=== PATIENT | female | born 1995 | race Caucasian/White ===

== ENCOUNTER 2017-09-13 13:58 | Emergency (ER) | payer OTHER, SELFPAY | END 2017-09-13 15:12 | disposition home or self-care (01) | PROVIDERS: Emergency Provider Nurse Practitioner; Visit Provider Nurse Practitioner | DX: J09.X2 Influenza due to identified novel influenza A virus with other respiratory manifestations (principal) | CPT/HCPCS: 87804; 99201 ==

== ENCOUNTER 2020-04-24 13:17 | Emergency (ER) | payer BC, SELFPAY ==
--- NOTE | 2020-04-24 14:00 | HMH.EDUTC ---
[facility] [place] Impression: Dysuria, Viral syndrome Disposition: Home, Self-Care Condition on Discharge: Good Instructions: DI for Urinary Tract Infection (UTI) Additional Instructions: Drink plenty of fluids. Take tylenol for pain or fever. Follow up with your regular doctor. GO TO THE ER FOR ANY WORSENING SYMPTOMS FOLLOW THE DIRECTIONS ON THE COVID-19 HAND OUT THAT WE GAVE YOU REGARDING SELF-ISOLATION UNTIL YOU KNOW YOUR COVID-19 RESULTS Prescriptions: Sulfamethoxazole/Trimethoprim [Bactrim DS tablet] 1 each PO BID 7 Days #14 tab Transmission Status: Received by [facility] #[id number] Referrals: Isabel Patel APRN [Primary Care Provider] - Forms: Work/School Release Time of Disposition: 14:30 Medical Decision Making - Medical Records Medical records reviewed: No: I reviewed the patient's medical records. - Lm Inquiry Pt receiving controlled substance: No Vital Signs: 04/24/20 14:03 04/24/20 14:35 Temperature 100.1 F H 100.1 F H Temperature Source Oral Oral Pulse Rate 99 H Pulse Rate [Radial] 99 H Respiratory Rate 14 14 Blood Pressure 130/84 Blood Pressure [Right Arm] 130/84 Blood Pressure Mean [Right Arm] 99 Blood Pressure Source Automatic Cuff Blood Pressure Source [Right Arm] Automatic Cuff Blood Pressure Position Sitting Blood Pressure Position [Right Arm] Sitting 02 Sat by Pulse Oximetry 100 Oxygen Delivery Method Room Air Room Air - Lab Data Lab results reviewed: Yes: I reviewed the patient's lab results. Lab Results 04/24/20 14:05: Urine Color [place], Urine Appearance Clear, Urine pH 7.0, Ur Specific [place] 1.025, Urine Protein 2+, Urine Glucose (UA) 100, Urine Ketones Negative, Urine Blood Negative, Urine Nitrate Negative, Urine Bilirubin 2+ A, Urine Urobilinogen 2, Ur Leukocyte Esterase Negative [facility] [place] - General Stated complaint: possible kidney infection Time Seen by Provider: 04/24/20 14:00 - History of Present Illness Provider Complaint: She c/o chilling, fever, low back pain for the past2 days. She has also had some burning with urination and dark strong smelling urine. She denies any known exposure to COVID-19. - Related Data Home Medications Medication Instructions Recorded Confirmed norethindrone 1 mg-ethinyl 1 tab PO 28 Days tab 08/03/18 estradiol 20 mcg (21)-iron 75 mg (7) tablet Previous Rx's Medication Instructions Recorded promethazine 25 mg tablet 25 mg PO Q6H PRN #7 tab 05/18/18 Sulfamethoxazole/Trimethoprim 1 each PO BID 7 Days #14 tab 04/24/20 [Bactrim DS tablet] Allergies Allergy/AdvReac Type Severity Reaction Status Date / Time No Known Allergies Allergy Unverified 05/20/18 17:44 [facility] History - Hepatitis A Screen Attestation statement:: This patient has been screened for Hepatitis A risk factors. I have reviewed the patient's past medical history: Yes Medical History: Denies:: Asthma, Coronary Artery Disease Laterality Cases: Bilateral: Tonsillectomy - Social History Smoking Status: Never smoker Alcohol Intake: never Substance Use Type: denies use Occupational Status: employed Family Hx:: Diabetes ROS Obtained: Yes All systems reviewed & no additional complaints - Constitutional Constitutional: Denies chills, Denies fever(s) - Genitourinary Female Genitourinary: Reports as per HPI - Musculoskeletal Musculoskeletal: Reports back pain Physical Exam - General General appearance: alert, in no apparent distress - Head Head exam: atraumatic, normocephalic, normal inspection - Eye Eye exam: Present: normal appearance, PERRL, EOMI - ENT ENT exam: Present: normal exam, normal oropharynx, mucous membranes moist, TM's normal bilaterally, normal external ear exam - Neck Neck exam: Present: normal inspection, full ROM, trachea midline. Absent: meningismus, lymphadenopathy - Chest Chest inspection: Present: normal inspection, symmetric chest wall ris
[2020-04-24 14:03] VITALS: BP 130/84; PULSE 99; RESP 14; TEMP 37.8; O2SAT 100; BMI 24.4
[2020-04-24 14:10] LABS: Apearance,Urine Clear (Clear); Color,Urine Amber (Yellow); Specific Gravity, Urine 1.025 (1.005-1.030)
[2020-04-24 14:11] LABS: Bilirubin,Urine 2+ (Negative); Blood, Urine Negative (Negative); Glucose,Urine (UA) 100 (Negative); Ketones,Urine Negative (Negative); Protein,Urine 2+ (Negative); Urobilinogen,Urine 2 EU/dl (0.2)
[2020-04-24 14:12] LABS: UTC Leukocyte Esterase,Urine Negative (Negative); UTC Nitrate,Urine Negative (Negative)
[2020-04-24 14:35] VITALS: BP 130/84; PULSE 99; RESP 14; TEMP 37.8; O2SAT 100
== END 2020-04-24 14:37 | disposition home or self-care (01) ==
PROVIDERS: Emergency Provider Nurse Practitioner Family; PCP Nurse Practitioner Family
DX: B34.9 Viral infection, unspecified (principal); Z20.828 Contact with and (suspected) exposure to other viral communicable diseases; Z90.09 Acquired absence of other part of head and neck
CPT/HCPCS: 81003; 99202; U0003

== ENCOUNTER 2022-06-07 18:00 | Emergency (ER) | payer OTHER, SELFPAY ==
[2022-06-07 19:40] VITALS: BP 120/72; PULSE 71; RESP 18; TEMP 36.8; O2SAT 100; BMI 22.0
[2022-06-07 19:53] LABS: UTC Pregnancy Test, Urine Negative (Negative)
[2022-06-07 19:54] LABS: Apearance,Urine Clear (Clear); Bilirubin,Urine Negative (Negative); Blood, Urine Negative (Negative); Color,Urine Yellow (Yellow); Glucose,Urine (UA) Negative (Negative); Ketones,Urine Negative (Negative); Protein,Urine Negative (Negative); Specific Gravity, Urine 1.025 (1.005-1.030); UTC Leukocyte Esterase,Urine Negative (Negative); UTC Nitrate,Urine Negative (Negative); Urobilinogen,Urine 1 EU/dl (0.2)
--- NOTE | 2022-06-07 19:57 | EXP.UTC ---
Discharge Plan Disposition Patient Disposition: Home, Self-Care Condition: Good Prescriptions Prescriptions: New cephalexin 500 mg capsule 500 mg PO BID 5 Days Qty: 10 0RF No Action norethindrone-e.estradiol-iron 1 mg-20 mcg (21)/75 mg (7) tablet 1 tab PO 28 Days Referrals Follow up/Referrals: Kristy Cabezas [Primary Care Provider] - See instructions Activity Restrictions/Add. Instructions Additional Instructions/Restrictions: *Increase fluids. Water not Soda or Tea *Start antibiotic immediately and be sure to take as ordered for the FULL length of time although you should start to see improvement over the next 48 hours *Be SURE to follow up anytime for new or worsening symptoms with your family doctor. AND in 48 hours for urine culture results with your family doctor, if you do not have a doctor then you may call back to the [facility] for urine culture results and further treatment. We do recommend that you choose and establish care with a Primary Care Physician. ?AND follow up with them ?in 10-14 days to repeat UA to ensure infection is resolved and blood no longer present *Be sure to let your PCP know that we sent urine cultures from the [facility] so they can follow up to ensure that you area the on the correct antibiotic Call your doctor office and make appointment for 48 hours (2 days from today) ?to follow up and get the results of your urine culture and further treatment Clinical Impressions Clinical Impression: Dysuria Instructions Patient Instructions: DI for Urinary Tract Infection (UTI) [place]charge ED [place]az[place] [facility] [place] General Stated complaint: adominal pain Mode of Arrival: Ambulatory Source of Information: Patient Limitations: No Limitations Time Seen by Provider: 06/07/22 19:57 Description of Symptoms (Recalled from Triage Doc. by RN): PATIENT C/O FREQUENT URINATION X 4 DAYS HEENT Symptoms (Recalled from RN notes): No Resp Symptoms (Recalled from RN notes): No Skin Symptoms (Recalled from RN notes): No MS Symptoms (Recalled from RN notes): No Functional Status (Recalled from RN notes): WNL History of Present Illness Provider Complaint: Patient states that she has been having urinary frequency and urgency at home and has taken several home UTI test and they showed positive States that she started drinking cranberry juice and it did help some but still having the pressure like feeling like she has to go Denies back pain denies fever Patient states feels like she has a UTI Related Data Home Medications Medication Instructions Recorded Confirmed norethindrone 1 mg-ethinyl 1 tab PO 28 days 04/18/18 estradiol 20 mcg (21)-iron 75 mg (7) tablet Previous Rx's Medication Instructions Recorded cephalexin 500 mg capsule 500 mg PO BID 5 days #10 caps 06/07/22 Allergies Allergy/AdvReac Type Severity Reaction Status Date / Time Sulfa (Sulfonamide Allergy Verified 06/07/22 19:53 Antibiotics) Worker's Comp Is this a Worker's Comp case?: No PFSH PFSH Medical History (Updated 06/07/22 @ 20:07 by Elli Bazan APRN) Anxiety Depression Social History (Updated 06/07/22 @ 19:52 by Yoly Vargas RN) Smoking Status: Never smoker alcohol intake: never substance use type: denies use current occupational status: other Travel in the last 8 weeks: None housing: house ROS Obtained: Yes All systems reviewed & no additional complaints except as documented and Yes Systems reviewed as appropriate & no additional complaints except as documented Constitutional Constitutional: Reports system reviewed and no additional complaints, except as documented, Reports as per HPI, Denies body ache, Denies chills and Denies fever(s) ENT Ears, Nose, Mouth, and Throat: Reports system reviewed and no additional complaints, except as documented and Reports as per HPI Cardiovascular Cardiovascular: Reports system reviewed and no additional complaints, except as documented
[2022-06-07 20:08] VITALS: BP 120/72; PULSE 71; RESP 18; TEMP 36.8; O2SAT 100
[2022-06-11 21:08] LABS: Neisseria gonorrhoeae, NAA Negative (Negative)
== END 2022-06-07 20:14 | disposition home or self-care (01) ==
PROVIDERS: Emergency Provider Nurse Practitioner; PCP Nurse Practitioner Family
DX: R30.0 Dysuria (principal)
CPT/HCPCS: 81003; 81025; 87086; 87491; 87591; 99212; G0463

== ENCOUNTER 2022-10-12 13:25 | Emergency (ER) | payer OTHER, SELFPAY ==
[2022-10-12 13:27] VITALS: BP 135/82; PULSE 73; RESP 20; TEMP 36.8; O2SAT 98; BMI 24.7
--- NOTE | 2022-10-12 13:56 | EXP.UTC ---
Discharge Plan Disposition Patient Disposition: Home, Self-Care Condition: Good Prescriptions Prescriptions: No Action norethindrone-e.estradiol-iron 1 mg-20 mcg (21)/75 mg (7) tablet 1 tab PO DAILY 28 Days fluoxetine 40 mg capsule 40 mg PO DAILY Label Comments: TAKE UP TO 1 CAPSULE BY MOUTH DAILY DIRECTED Referrals Follow up/Referrals: Kristy Cabezas [Primary Care Provider] - See instructions Activity Restrictions/Add. Instructions Additional Instructions/Restrictions: Will call with serum results Clinical Impressions Clinical Impression: Amenorrhea Instructions Patient Instructions: DI for Amenorrhea [place]charge ED Provider: Mirela Rubio [facility] [place] General Stated complaint: test Time Seen by Provider: 10/12/22 13:56 History of Present Illness Provider Complaint: Patient has not had a period in September. Her period in August only lasted 2 days. She has taken two home tests and they were negative, but she wants to be sure that she is not before she starts her new pill pack. She states that she has been on control for 7 years. Relieving factors: none Exacerbating factors: none Associated symptoms: denies other symptoms Treatments prior to arrival: none Related Data Home Medications Medication Instructions Recorded Confirmed norethindrone 1 mg-ethinyl 1 tab PO DAILY control 28 04/18/18 10/12/22 estradiol 20 mcg (21)-iron 75 mg days (7) tablet fluoxetine 40 mg capsule 40 mg PO DAILY Depression 10/12/22 10/12/22 Allergies Allergy/AdvReac Type Severity Reaction Status Date / Time Sulfa (Sulfonamide Allergy Verified 10/12/22 14:07 Antibiotics) [facility] Disclaimer: The information contained in this section may have been updated after the patient was seen, as this information can be updated by other users. Medical History (Updated 10/12/22 @ 14:12 by DARIANA Medeiros) Anxiety Depression Social History (Updated 06/07/22 @ 19:52 by Yoly Vargas RN) Smoking Status: Never smoker alcohol intake: never substance use type: denies use current occupational status: other Travel in the last 8 weeks: None housing: house ROS Obtained: Yes All systems reviewed & no additional complaints except as documented Genitourinary Female Genitourinary: Reports amenorrhea Physical Exam General General appearance: alert and in no apparent distress Head Head exam: atraumatic, normocephalic and normal inspection Chest Chest inspection: Present normal inspection and symmetric chest wall rise; Absent tenderness Respiratory Respiratory exam: Present normal lung sounds bilaterally; Absent respiratory distress Cardiovascular Cardiovascular exam: Present regular rate and normal rhythm; Absent JVD Extremities Exam Extremities exam: Present normal inspection, full ROM and normal capillary refill; Absent calf tenderness Neurological Exam Neurological exam: Present alert and oriented X3 Psychiatric Psychiatric exam: Present normal affect and normal mood Skin Skin exam: Present warm, dry, intact and normal color Lymphatic Lymphatic Findings: no adenopathy Medical Decision Making Lm Inquiry Pt receiving controlled substance: No Lab Data Lab results reviewed: Yes I reviewed the patient's lab results.
[2022-10-12 13:59] VITALS: BMI 24.7
[2022-10-12 14:09] VITALS: BP 135/82; PULSE 73; RESP 20; TEMP 36.8; O2SAT 98
[2022-10-12 14:46] LABS: HCG Qualitative, Serum Negative (Negative)
== END 2022-10-12 14:09 | disposition home or self-care (01) ==
PROVIDERS: Emergency Provider Physician Assistant; PCP Nurse Practitioner Family
DX: Z32.02 Encounter for pregnancy test, result negative (principal); N91.2 Amenorrhea, unspecified; Z79.3 Long term (current) use of hormonal contraceptives
CPT/HCPCS: 84703; 99212; G0463

== ENCOUNTER 2022-11-05 11:09 | Emergency (ER) | payer OTHER, SELFPAY ==
[2022-11-05 11:15] VITALS: BP 121/78; PULSE 81; RESP 22; TEMP 36.8; O2SAT 98; BMI 22.4
--- NOTE | 2022-11-05 11:30 | EXP.UTC ---
Discharge Plan Disposition Patient Disposition: Home, Self-Care Condition: Good Prescriptions Prescriptions: New ofloxacin 0.3 % drops See Rx Instructions .ROUTE .COMPLEX Qty: 5 0RF Rx Instructions: put 1 drp into affected eye every 2 h x 2 days, then 1 drp 4 times/day days 3-7 No Action norethindrone-e.estradiol-iron 1 mg-20 mcg (21)/75 mg (7) tablet 1 tab PO DAILY 28 Days fluoxetine 40 mg capsule 40 mg PO DAILY Label Comments: TAKE UP TO 1 CAPSULE BY MOUTH DAILY DIRECTED Referrals Follow up/Referrals: Kristy Cabezas [Primary Care Provider] - See instructions Activity Restrictions/Add. Instructions Additional Instructions/Restrictions: Use the eye drops as directed. Strict hand washing in the house hold, because conjunctivitis is very contagious. Follow up with your regular doctor. GO TO THE ER FOR ANY WORSENING SYMPTOMS OR CONCERNS Clinical Impressions Clinical Impression: Conjunctivitis of left eye Stand Alone Forms Stand Alone Forms: Work/School Release Instructions Patient Instructions: How to Instill Eye Drops, DI for Conjunctivitis Discharge ED Provider: Lavon Mustafa [facility] [place] General Stated complaint: possible pink eye Time Seen by Provider: 11/05/22 11:29 History of Present Illness Provider Complaint: She states that for the past 2 days she has had left eye irritation and redness. She denies any injury or foreign body. Related Data Home Medications Medication Instructions Recorded Confirmed norethindrone 1 mg-ethinyl 1 tab PO DAILY control 28 04/18/18 10/12/22 estradiol 20 mcg (21)-iron 75 mg days (7) tablet fluoxetine 40 mg capsule 40 mg PO DAILY Depression 10/12/22 10/12/22 Previous Rx's Medication Instructions Recorded ofloxacin 0.3 % eye drops See Rx Instructions ophthalmic 11/05/22 (eye) .COMPLEX #5 mL Allergies Allergy/AdvReac Type Severity Reaction Status Date / Time Sulfa (Sulfonamide Allergy Verified 10/12/22 14:07 Antibiotics) [facility] Disclaimer: The information contained in this section may have been updated after the patient was seen, as this information can be updated by other users. Medical History Anxiety Depression Social History Smoking Status: Never smoker alcohol intake: never substance use type: denies use current occupational status: other Travel in the last 8 weeks: None housing: house ROS Obtained: Yes All systems reviewed & no additional complaints except as documented Constitutional Constitutional: Denies chills and Denies fever(s) Eyes Eyes: Reports eye discharge ENT Ears, Nose, Mouth, and Throat: Denies dizziness, Denies otalgia and Denies sore throat Cardiovascular Cardiovascular: Denies chest pain Respiratory Respiratory: Denies shortness of breath, Denies chest congestion, Denies cough, Denies stridor and Denies wheezing Gastrointestinal Gastrointestingal: Denies nausea or vomiting Musculoskeletal Musculoskeletal: Reports system reviewed and no additional complaints, except as documented and Denies arthralgias Integumentary/Breasts Skin/Breast: Denies rash Neurologic Neurologic: Denies dizziness and Denies paresthesias Allergic/Immunologic Allergic/Immunologic: Denies wheezing Physical Exam General General appearance: alert and in no apparent distress Head Head exam: atraumatic, normocephalic and normal inspection Eye Eye exam: Present PERRL, EOMI, conjunctival redness, conjunctival injection and discharge ENT ENT exam: Present normal exam, normal oropharynx, mucous membranes moist, TM's normal bilaterally and normal external ear exam Neck Neck exam: Present normal inspection, full ROM and trachea midline; Absent meningismus or lymphadenopathy Chest Chest inspection: Present normal inspection and symmetric chest wall rise; Absent tenderness
[2022-11-05 11:49] VITALS: BP 121/78; PULSE 81; RESP 22; TEMP 36.8; O2SAT 98
== END 2022-11-05 11:55 | disposition home or self-care (01) ==
PROVIDERS: Emergency Provider Nurse Practitioner Family; PCP Nurse Practitioner Family
DX: H10.9 Unspecified conjunctivitis (principal)
CPT/HCPCS: 99212; 99213; G0463

== ENCOUNTER 2022-11-07 11:48 | Emergency (ER) | payer OTHER, SELFPAY ==
[2022-11-07 12:30] VITALS: BP 110/63; PULSE 67; RESP 20; TEMP 36.8; O2SAT 99; BMI 24.7
[2022-11-07 12:45] LABS: UTC Strep Screen (Rapid) Negative (Negative)
--- NOTE | 2022-11-07 13:10 | EXP.UTC ---
Discharge Plan Disposition Patient Disposition: Home, Self-Care Condition: Good Prescriptions Prescriptions: No Action norethindrone-e.estradiol-iron 1 mg-20 mcg (21)/75 mg (7) tablet 1 tab PO DAILY 28 Days fluoxetine 40 mg capsule 40 mg PO DAILY Label Comments: TAKE UP TO 1 CAPSULE BY MOUTH DAILY DIRECTED ofloxacin 0.3 % drops See Rx Instructions .ROUTE .COMPLEX Qty: 5 0RF Rx Instructions: put 1 drp into affected eye every 2 h x 2 days, then 1 drp 4 times/day days 3-7 Referrals Follow up/Referrals: Kristy Cabezas [Primary Care Provider] - See instructions Activity Restrictions/Add. Instructions Additional Instructions/Restrictions: *Monitor Temp, Over the counter Motrin or Tylenol as directed/as needed Tylenol every 4 hours and Motrin every 6 hours (as long as your family doctor has told you that you can take it) for fever or pain. and straight to ER if unable to lower temp less than 101.0 after medication given *Warm salt water gargles may help to soothe the throat *Throat Lozenges? *Warm fluids like tea with honey may help to soothe the throat? *Sleep elevated *Humidifier/Vaporizer Your throat swab was sent for culture. Those results are typically sent to your primary care. Be sure to follow up in 2-3 days with your family doctor/primary care physician if no improvement so they can review those result and treat if necessary. If you don?t have a primary care doctor, I recommend you get one but in the mean time, you will have to return to a walk in clinic Follow up IMMEDIATELY for new or worsening symptoms or no Noticeable improvement over the next 48-72 hours. 911 for difficulty breathing or swallowing Clinical Impressions Clinical Impression: Viral syndrome Stand Alone Forms Stand Alone Forms: Work/School Release Instructions Patient Instructions: DI for Viral Syndrome Discharge ED Provider: Elli Bazan [facility] General Stated complaint: Congestion drainage sore throat Mode of Arrival: Ambulatory Source of Information: Patient Limitations: No Limitations Time Seen by Provider: 11/07/22 13:10 Description of Symptoms (Recalled from Triage Doc. by RN): PATIENT C/O SINUS DRAINAGE, SORE THROAT THAT STARTED 4 DAYS AGO HEENT Symptoms (Recalled from RN notes): Yes Resp Symptoms (Recalled from RN notes): No Skin Symptoms (Recalled from RN notes): No MS Symptoms (Recalled from RN notes): No Functional Status (Recalled from RN notes): WNL History of Present Illness Provider Complaint: Patient states that she has been having nasal congestion and sore scratchy throat that started about 4 days States that today her throat was still bothering her today so she came in to get checked Related Data Home Medications Medication Instructions Recorded Confirmed norethindrone 1 mg-ethinyl 1 tab PO DAILY control 28 04/18/18 10/12/22 estradiol 20 mcg (21)-iron 75 mg days (7) tablet fluoxetine 40 mg capsule 40 mg PO DAILY Depression 10/12/22 10/12/22 Previous Rx's Medication Instructions Recorded ofloxacin 0.3 % eye drops See Rx Instructions ophthalmic 11/05/22 (eye) .COMPLEX #5 mL Allergies Allergy/AdvReac Type Severity Reaction Status Date / Time Sulfa (Sulfonamide Allergy Verified 10/12/22 14:07 Antibiotics) Worker's Comp Is this a Worker's Comp case?: No [facility] Disclaimer: The information contained in this section may have been updated after the patient was seen, as this information can be updated by other users. Medical History Anxiety Depression Social History Smoking Status: Never smoker alcohol intake: never substance use type: denies use current occupational status: other Travel in the last 8 weeks: None housing: house ROS Obtained: Yes All systems reviewed & no additional complaints ex
[2022-11-07 13:22] VITALS: BP 110/63; PULSE 67; RESP 20; TEMP 36.8; O2SAT 99
== END 2022-11-07 13:26 | disposition home or self-care (01) ==
PROVIDERS: Emergency Provider Nurse Practitioner; PCP Nurse Practitioner Family
DX: B34.9 Viral infection, unspecified (principal); R09.89 Other specified symptoms and signs involving the circulatory and respiratory systems; J02.9 Acute pharyngitis, unspecified
CPT/HCPCS: 87880; 99212; 99213; G0463

== ENCOUNTER 2023-05-27 08:18 | Emergency (ER) | payer OTHER, SELFPAY ==
[2023-05-27 09:20] VITALS: BP 116/70; PULSE 64; RESP 19; TEMP 36.6; O2SAT 100; BMI 25.7
[2023-05-27 09:32] LABS: Microscopic, Urine URINE MICROSCOPIC (MICROSCOPIC)
[2023-05-27 09:39] LABS: Appearance,Urine SL CLOUDY (Clear); Blood, Urine 3+ (Negative); Color,Urine YELLOW (Yellow); Glucose,Urine (UA) TRACE (Negative); Ketones,Urine TRACE (Negative); Leukocyte Esterase,Urine 2+ (Negative); Nitrate,Urine POSITIVE (Negative); PH,Urine 6.5 (5.0-8.5); Protein,Urine 3+ (Negative); Specific Gravity, Urine 1.025 (1.005-1.030)
[2023-05-27 09:41] LABS: Bilirubin,Urine 1+ (Negative)
[2023-05-27 09:42] LABS: UTC Pregnancy Test, Urine Negative (Negative)
[2023-05-27 09:49] LABS: Bacteria,Urine 1+ /lpf; RBC,Urine TNTC #/hpf (0-3); Squamous Epithelial Cell,Urine Occasional #/hpf (0-5); WBC,Urine 20-50 #/hpf (0-3)
--- NOTE | 2023-05-27 09:55 | EXP.UTC ---
Discharge Plan Disposition Patient Disposition: Home, Self-Care Condition: Good Prescriptions Prescriptions: New cefdinir 300 mg capsule 300 mg PO BID 10 Days Qty: 20 0RF No Action norethindrone-e.estradiol-iron 1 mg-20 mcg (21)/75 mg (7) tablet 1 tab PO DAILY 28 Days fluoxetine 40 mg capsule 40 mg PO DAILY Patient Comments: TAKE UP TO 1 CAPSULE BY MOUTH DAILY DIRECTED clonidine HCl 0.1 mg tablet 0.1 mg PO DAILY Patient Comments: TAKE 1 TABLET BY MOUTH AT BEDTIME FOR INCREASED ANXIETY Referrals Follow up/Referrals: Provider,Referral, MD [Primary Care Provider] - See instructions Activity Restrictions/Add. Instructions Additional Instructions/Restrictions: *Increase fluids. Water not Soda or Tea *Start antibiotic immediately and be sure to take as ordered for the FULL length of time although you should start to see improvement over the next 48 hours *Pyridium as needed Remember this medication will turn your urine . This is normal but it will stain what ever it gets on *You should not use Pyridium for more than 48 hours. If so , follow up with your primary physician to review urine culture and ensure that antibiotic is adequate for infection *Be SURE to follow up anytime for new or worsening symptoms with your family doctor. AND in 48 hours for urine culture results with your family doctor, if you do not have a doctor then you may call back to the [facility] for urine culture results and further treatment. We do recommend that you choose and establish care with a Primary Care Physician. ?AND follow up with them ?in 10-14 days to repeat UA to ensure infection is resolved and blood no longer present *Be sure to let your PCP know that we sent urine cultures from the [facility] so they can follow up to ensure that you area the on the correct antibiotic Call your doctor office and make appointment for 48 hours (2 days from today) ?to follow up and get the results of your urine culture and further treatment Straight to the ER immediately if you have any fever, abdominal pain, worsening of symptoms Clinical Impressions Clinical Impression: UTI (urinary tract infection) Qualifiers: Urinary tract infection type: site unspecified Hematuria presence: with hematuria Qualified Code(s): N39.0 - Urinary tract infection, site not specified Instructions Patient Instructions: Urinary Tract Infection, DI for Urinary Tract Infection (UTI), Cefdinir Discharge ED Provider: Elli Bazan [facility] [place] General Stated complaint: blood in urine, urgency to pee, burning Mode of Arrival: Ambulatory Source of Information: Patient Limitations: No Limitations Time Seen by Provider: 05/27/23 09:55 Description of Symptoms (Recalled from Triage Doc. by RN): PATIENT C/O BURNING/URGENCY WITH URINATION, BLOOD WHEN WIPING, AND FEELING LIKE SHE STILL NEEDS TO URINATE AFTER URINATING SINCE THIS MORNING HEENT Symptoms (Recalled from RN notes): No Resp Symptoms (Recalled from RN notes): No Skin Symptoms (Recalled from RN notes): No MS Symptoms (Recalled from RN notes): No Functional Status (Recalled from RN notes): WNL History of Present Illness Provider Complaint: Patient states that for the last couple of days she has been having burning with urination, feeling of urgency and frequency and noticed some blood on the tissue when she wiped this morning States that she hasnt had any back pain or anything and denies abdominal pain or fever States that today it was burning worse when she urinated so she came in Related Data Home Medications Medication Instructions Recorded Confirmed norethindrone 1 mg-ethinyl 1 tab PO DAILY control 28 04/18/18 05/27/23 estradiol 20 mcg (21)-iron 75 mg days (7) tablet fluoxetine 40 mg capsule 40 mg PO DAILY Depression 10/12/22 05/27/23 clonidine HCl 0.1 mg tablet 0.1 mg PO DAILY Depression 05/27/23 05/27/23 Previous Rx's Medication Instructions Recorded cefdinir 300 mg capsul
[2023-05-27 12:01] VITALS: BP 116/70; PULSE 64; RESP 19; TEMP 36.6; O2SAT 100
== END 2023-05-27 12:09 | disposition home or self-care (01) ==
PROVIDERS: Emergency Provider Nurse Practitioner
DX: N39.0 Urinary tract infection, site not specified (principal); B96.29 Other Escherichia coli [E. coli] as the cause of diseases classified elsewhere; R31.9 Hematuria, unspecified; F41.9 Anxiety disorder, unspecified; F32.A Depression, unspecified
CPT/HCPCS: 81001; 81025; 87086; 87186; 96360; 96372; 99212; 99214; G0463; J0696

== ENCOUNTER 2024-09-08 11:57 | Emergency (ER) | payer OTHER, SELFPAY ==
--- NOTE | 2024-09-08 12:40 | EXP.UTC ---
Discharge Plan Disposition Patient Disposition: Home, Self-Care Condition: Good Prescriptions Prescriptions: New metronidazole 500 mg tablet 500 mg PO BID 7 Days Qty: 14 0RF No Action norethindrone-e.estradiol-iron 1 mg-20 mcg (21)/75 mg (7) tablet 1 tab PO DAILY 28 Days fluoxetine 40 mg capsule 40 mg PO DAILY Patient Comments: TAKE UP TO 1 CAPSULE BY MOUTH DAILY DIRECTED clonidine HCl 0.1 mg tablet 0.1 mg PO DAILY Patient Comments: TAKE 1 TABLET BY MOUTH AT BEDTIME FOR INCREASED ANXIETY cefdinir 300 mg capsule 300 mg PO BID 10 Days Qty: 20 0RF dextroamphetamine-amphetamine 25 mg capsule,extended release 24hr 25 mg PO DAILY Patient Comments: TAKE 1 CAPSULE BY MOUTH EVERY MORNING Referrals Follow up/Referrals: Kristy Cabezas [Primary Care Provider] - See instructions Activity Restrictions/Add. Instructions Additional Instructions/Restrictions: Follow up with your primary care provider. GO TO THE ER FOR ANY WORSENING SYMPTOMS OR CONCERNS Clinical Impressions Clinical Impression: Encounter for drug screening, Bacterial vaginosis Print Language Print Language: Moldovan Discharge ED Provider: Lavon Mustafa [facility] [place] HPI General Stated complaint: drug test Time Seen by Provider: 09/08/24 12:06 History of Present Illness Provider Complaint: She is here requesting a drug screen for her medical provider that prescribes her adderal. She also request to be checked for bacterial vaginosis. Related Data Home Medications ?Medication ?Instructions ?Recorded ?Confirmed norethindrone 1 mg-ethinyl 1 tab PO DAILY control 28 04/18/18 09/08/24 estradiol 20 mcg (21)-iron 75 mg days (7) tablet fluoxetine 40 mg capsule 40 mg PO DAILY Depression 10/12/22 09/08/24 clonidine HCl 0.1 mg tablet 0.1 mg PO DAILY Depression 05/27/23 05/27/23 dextroamphetamine-amphetamine ER 25 mg PO DAILY 09/08/24 09/08/24 25 mg 24hr capsule,extend release Previous Rx's ?Medication ?Instructions ?Recorded cefdinir 300 mg capsule 300 mg PO BID 10 days #20 caps 05/27/23 metronidazole 500 mg tablet 500 mg PO BID 7 days #14 tabs 09/13/24 Allergies Allergy/AdvReac Type Severity Reaction Status Date / Time Sulfa (Sulfonamide Allergy Verified 10/12/22 14:07 Antibiotics) [facility] Disclaimer: The information contained in this section may have been updated after the patient was seen, as this information can be updated by other users. Medical History Anxiety Depression Social History Smoking Status: Never smoker alcohol intake: never substance use type: denies use current occupational status: other Travel in the last 8 weeks: None housing: house Have you lived/traveled outside US in past 30 days?: No Contact w/someone who lives/traveled outside US past 30 days?: No Exposure to someone with infectious disease in past 14 days?: No Do you have a fever (greater than 100.4 F or 38 C)?: No Have you tested positive for COVID-19: No Exposed to someone with COVID-19 in past 14 days?: No Do you have a sore throat?: No Do you have a cough?: No Do you have any weakness?: No Do you have any diarrhea?: No Are you experiencing any unusual bleeding?: No Do you have any muscle aches/pain?: No Do you have any abdominal pain?: No Are you experiencing loss of taste or smell?: No ROS Obtained: Yes All systems reviewed & no additional complaints except as documented Constitutional Constitutional: Denies chills and Denies fever(s) Eyes Eyes: Denies eye discharge ENT Ears, Nose, Mouth, and Throat: Denies dizziness, Denies otalgia and Denies sore throat Cardiovascular Cardiovascular: Denies chest pain Respiratory Respiratory: Denies shortness of breath, Denies chest congestion, Denies cough, Denies stridor and Denies wheezing Gastrointestinal Gastrointestingal: Denies nausea or vomiting Musculoskeletal Musculoskeletal: Reports system reviewed and no additional complaints, except as documented and Denies arthralgias Integumentary/Breasts Skin/Breast: Denies rash Neurologic Neurologic: Denies dizziness and Denies paresthesias Allergic/Immunologic Allergic/Immunologic: Denies wheezing Physical Exam General General appearance: alert and in no apparent distress Head Head exam: atraumatic, normocephalic and normal inspection Eye Eye exam: Present normal appearance, PERRL and EOMI ENT ENT exam: Present normal exam, normal oropharynx, mucous membranes moist, TM's normal bilaterally and normal external ear exam Neck Neck exam: Present normal inspection, full ROM and trachea midline; Absent meningismus or lymphadenopathy Chest Chest inspection: Present normal inspection and symmetric chest wall rise; Absent tenderness Respiratory Respiratory exam: Present normal lung sounds bilaterally; Absent respiratory distress Cardiovascular Cardiovascular exam: Present regular rate and normal rhythm; Absent JVD Abdominal Exam Abdominal exam: Present soft and normal bowel sounds; Absent distention, tenderness or guarding Extremities Exam Extremities exam: Present normal inspection, full ROM and normal capillary refill; Absent calf tenderness Back Exam Back exam: Present normal inspection; Absent tenderness Neurological Exam Neurological exam: Present alert and oriented X3 Psychiatric Psychiatric exam: Present normal affect and normal mood Skin Skin exam: Present warm, dry, intact and normal color Lymphatic Lymphatic Findings: no adenopathy Medical Decision Making Medical Records Medical records reviewed: No I reviewed the patient's medical records. Screening: Per USPSTF and CDC recommendations, given the prevalence of disease in our region, it is our hospital?s policy to screen for HIV and viral Hepatitis for all patients aged 18 and over and those with ongoing risk factors. Lm Inquiry Pt receiving controlled substance: No Lab Data Lab results reviewed: Yes I reviewed the patient's lab results.
[2024-09-08 12:51] VITALS: BP 121/79; PULSE 76; RESP 18; TEMP 36.8; O2SAT 100; BMI 23.7
[2024-09-08 12:56] LABS: Apearance,Urine Cloudy (Clear); Bilirubin,Urine Negative (Negative); Blood, Urine Negative (Negative); Color,Urine Yellow (Yellow); Glucose,Urine (UA) Negative (Negative); Ketones,Urine Negative (Negative); PH,Urine 5.5 (5.0-8.5); Protein,Urine Negative (Negative); UTC Leukocyte Esterase,Urine Negative (Negative); UTC Nitrate,Urine Negative (Negative); Urobilinogen,Urine 1 EU/dl (0.2)
[2024-09-08 13:54] LABS: Amphetamine/Metha Screen,Urine Positive ng/ml (<1000)
[2024-09-08 13:55] LABS: Barbiturates Screen,Urine Negative ng/ml (<200); Benzodiazepines Screen,Urine Negative ng/ml (<200)
[2024-09-08 13:56] LABS: Cannabinoid Screen,Urine Negative ng/ml (<50)
[2024-09-08 13:57] VITALS: BP 121/79; PULSE 76; RESP 18; TEMP 36.8
[2024-09-08 13:57] LABS: Cocaine Screen,Urine Negative ng/ml (<300); Methadone Screen,Urine Negative ng/ml (<300)
[2024-09-08 13:58] LABS: Phencyclidine Screen,Urine Negative ng/ml (<25)
[2024-09-08 13:59] LABS: Opiate Screen,Urine Negative ng/ml (<300)
[2024-09-10 18:08] LABS: Neisseria gonorrhoeae, NAA Negative (Negative)
--- NOTE | 2024-09-13 15:36 | PC.NURSE ---
PATIENT INFORMED OF RESULTS OF SWAB. DALLAS COMER APRN RX'ED FLAGYL. PATIENT EDUCATED ON SIDE EFFECTS AND NOT TO DRINK ALCOHOL WHILE TAKING IT. PATIENT VERBALIZED UNDERSTANDING.
== END 2024-09-08 13:57 | disposition home or self-care (01) ==
PROVIDERS: Emergency Provider Nurse Practitioner Family; PCP Nurse Practitioner Family
DX: Z02.83 Encounter for blood-alcohol and blood-drug test (principal); N76.0 Acute vaginitis
CPT/HCPCS: 80307; 81003; 87086; 87491; 87591; 87801; 99212; G0381

== ENCOUNTER 2025-06-09 10:01 | Outpatient (CLI) | payer BC, SELFPAY ==
--- OUTSIDE RECORDS SUMMARY | 2025-06-09 10:11 | XMS_ITS | Clinical Summary ---
Author Organization [facility] Address [address] [id number] Care Team Providers Care Electrician Third Name Role Phone Raulito Kristyelaine Torresen ALIZA Primary Care Provider Allergies Active Allergy Reactions Criticality Noted Date Comments Sulfa Antibiotics Hives 11/23/2020 Medications FLUoxetine (PROzac) 20 MG capsule Take 1 capsule by mouth Daily. 2 Active FLUoxetine (PROzac) 40 MG capsule TAKE UP TO 1 CAPSULE BY MOUTH DAILY DIRECTED 3 Active buPROPion XL (WELLBUTRIN XL) 150 MG 24 hr tablet Take 1 tablet by mouth Daily. Active norethindrone-ethi nyl estradiol (Aurovela 10/05) 1-20 MG-MCG per tabletIndications: Encounter for surveillance of contraceptive device Take 1 tablet by mouth Daily. 84 tablet 2 4 Active Active Problems No known active problems Immunizations Immunization Administration Dates Next Due Fluzone (or Fluarix & Flulaval for VFC) >6mos Hep A, 2 Dose 05/08/2010 Hepatitis A 09/02/2018 Meningococcal MCV4P (Menactra) 11/09/2013 Tdap 05/10/2023,04/07/2009 Family History Medical History Relation Name Comments Hypertension Father Diabetes Maternal Grandfather Heart disease Maternal Grandfather Cancer Maternal Grandmother Diabetes Maternal Grandmother Hyperlipidemia Mother Breast cancer Other MATERNAL GREAT AUNT Diabetes Paternal Uncle Colon cancer Neg Hx Osteoporosis Neg Hx Ovarian cancer Neg Hx Uterine cancer Neg Hx Relation Name Status Comments Father Maternal Grandfather Maternal Grandmother Mother Other MATERNAL GREAT AUNT Other BREAST C ANCER Paternal Uncle Social History Tobacco Use Types Packs/Day Years Used Date Smoking Tobacco: Never Smokeless Tobacco: Never Tobacco Cessation:Counseling Given: Not Answered Alcohol Use Standard Drinks/Week Comments Yes 0 (1 standard drink = 0.6 oz pur e alcohol) Abuse Screen Answer Date Recorded Unsafe at Home or Work/School Not on file Feels Threatened by Someone? Not on file 08/2023 Does Anyone Keep You from Co ntacting Others or Doint Things Outside the Home? Not on file 06/27/2023 Physical Sign of Abuse Present Not on file 1 Housing Stability Answer Date Recorded Current Living Arrangements Not on file 06/16 Potentially Unsafe Housing Conditions Not on shakila e 06/27/2023 Family and Community Support Answer Solomon e Recorded Help with Day-to-Day Activities Not on file 06/27/2023 Lonely or Isolated Not on file 06/27/2023 Employment Answer Date Recorded Do you want help finding or keeping work or a dick b? Not on file 06/27/2023 Disabilities Answer Date Recorded Concentrating, Remembering, or Making Decisions Difficulty Not on file 06/27/2023 Doing Errands Independently Difficulty Not on fi le 06/27/2023 Education Answer Date Recorded Help with school or training? Not on file Preferred Language Not on file 06/27/2023 Comments No Sex and Gender Information Value Date Recorded Sex Assigned at Not on file Legal Sex Female 8:30 AM EDT Gender Identity Not on file Sexual Orientation Not on file Occupation Industry Job Start Date Job End Date Not on file Not on file Not on file Not on file Last Filed Vital Signs Vital Sign Reading Time Taken Comments Blood Pressure 116/64 02/12/2024 4:25 PM EDT Pulse 76 05/22/2018 2:01 PM EDT Temperature 36.4 C (97.5 F) 11/23/2020 4:33 PM EST Respiratory Rate 18 02/12/2024 4:25 PM EDT Oxygen Saturation - - Inhaled Oxygen Concentration - - Weight 64.4 kg (142 lb) 02/12/2024 4:25 PM EDT Height 160 cm (5' 2.99 ) 02/12/2024 4:25 PM EDT Body Mass Index 25.16 02/12/2024 4:25 PM EDT Plan of Treatment Upcoming Encounters Date Type Department Care Team (Late st Contact Info) Description 07/08/2025 8:00 AM EDT Ancillary Procedure [facility] [address] [place] [address] 07/08/2025 8:30 AM EDT Initial [facility] [address] [place] [address] Valerie Cruz MD [address] [facility] [address] [place] [address] Health Maintenance Due Date Last Done Comments HEPATITIS C SCREENING 05/22/2018 ANNUAL PHYSICAL 11/23/2021 11/23/2020 Annual Gynecologic Pelvic and Breast Exam 02/12/2025 02/12/2024 INFLUENZA VACCINE 04/16/2025 07/13/2020 PAP SMEAR 02/11/2027 02/12/2024, 12/05/2021, 11/25/2020 TDAP/TD VACCINES (3 - Td or Tdap) 05/10/2033 05/10/2023, 04/07/2009 CHLAMYDIA SCREENING Discontinued 02/12/2024, 12/05/2021, 11/25/2020 Pneumococcal Vaccine 0-49 Aged Out No longer eligible based on patient's age to complete this topic Procedures Procedure Name Priority Date/Time Associated Diagnosis Comments LIQUID-BASED PAP SMEAR WITH HPV GENOTYPING REGARDLESS OF INTERPRETATION, [facility] ([facility]) Routine 02/12/2024 5:03 PM EDT Women's annual routine gynecological examination from Last 3 Months or Most Recently Relevant to Health Maintenance Results * LIQUID-BASED PAP SMEAR WITH HPV GENOTYPING REGARDLESS OF INTERPRETATION (KELLIE,COR,MAD) (02/12/2024 5:03 PM EDT) Reference Lab Report [facility] [address] [place] [address] or [phone] Marcos Hurd M.D., Company Truck Driver PATIENT NAME [facility] NGUY[facility]NE [id number] AGE SEX SSN CLIENT REF # [facility] 27 1995 F [id number] Karin [address]SHA DUNNE REQUESTING Eliel ATTENDING MIraD. COPY TO. LESTER PANDA [address] BRYSON GARCIA DATE COLLECTED DATE RECEIVED DATE REPORTED 02/12/2024 02/13/2024 02/20/2024 ThinPrep Pap with Cytyc Imaging DIAGNOSIS: Negative for intraepithelial lesion or malignancy Multiple factors can influence accuracy of Pap tests; therefore, screening at regular intervals is necessary for early cancer detection. COMMENT: Benign cellular changes associated with reactive/reparativ e changes are present. Professional interpretation rendered by Satish Downing M.D.,F.C.A.P. at [facility], [employer], [address] [place] [address]. SPECIMEN ADEQUACY: SATISFACTORY FOR EVALUATION Transformation zone is present. SOURCE OF SPECIMEN: CERVICAL/ENDOCERVI BROOKS SLIDES: 1 CLINICAL HISTORY: Women's annual routine gynecological examination Encounter for surveillance of vaginal ring hormonal contraceptive device HPV HR-HPV POOL: Negative The Aptima HPV assay is an in vitro nucleic acid amplification test for the qualitative detection of E6/E7 viral messenger RNA from 14 high risk types of HPV in cervical specimens. The high risk HPV types detected include: 16, 18, 31, 33, 35, 39, 45, 51, 52, 56, 58, 59, 66, 68 CLASSICS TEACHER: SHEELA CALVILLO (ASCP) REVIEWED, DIAGNOSED AND ELECTRONICALLY SIGNED BY: Satish Downing M.D.,F.C.A.P. CPT CODES: [id number], [id number], [id number] 02/20/2024 9:39 AM EDT [facility] ThinPrep Vial Cervix uteri structure / Unknown Collection / Unknown 02/12/2024 5:03 PM EDT 02/12/2024 5:03 PM EDT us Bryson Garcia SUBSTATION WIREMAN PATHOLOGY/CYTOLOGY ORDERABLES Final Result [facility]
[address] [place] [address], from Last 3 Months or Most Recently Relevant to Health Maintenance Insurance [facility] CROSS BLUE SHIELD O Care Teams Electrician Third Relationship Specialty Start Date End Date Kristy Cabezas APRN [address] [place] [address] PCP - General Family Medicine 12/10/22
== END 2025-06-09 23:59 | disposition home or self-care (01) ==
LOC: LAB 10:02
PROVIDERS: PCP Nurse Practitioner Family; Visit Provider Obstetrics & Gynecology
DX: Z34.90 Encounter for supervision of normal pregnancy, unspecified, unspecified trimester (principal); N92.6 Irregular menstruation, unspecified; Z3A.00 Weeks of gestation of pregnancy not specified
CPT/HCPCS: 36415; 84144; 84702

== ENCOUNTER 2025-06-29 11:13 | Outpatient (CLI) | payer BC, SELFPAY ==
--- OUTSIDE RECORDS SUMMARY | 2025-06-29 11:18 | XMS_ITS | Clinical Summary ---
Author Organization [facility] Address [address] [id number] Care Team Providers Care Locksmith Helper Name Role Phone Raulito Kristyelaine Torresen ALIZA [...] Description 07/08/2025 8:00 AM EDT Ancillary Procedure [facility] [address] [place] [address] 07/08/2025 8:30 AM EDT Initial [facility] [address] [place] [address] Valerie Cruz MD [address] [facility] [address] [place] [address] Health Maintenance Due Date Last Done Comments [...] Reference Lab Report [facility] [address] [place] [address] or [phone] Marcos Hurd M.D., Ship Purser PATIENT NAME [facility] NO[facility] M[facility] NGUY[facility]NE [id number] AGE SEX SSN CLIENT REF # [facility] 29 1995 F [id number] Karin VARSHA DUNEN REQUESTING Eliel ATTENDING MIraD. COPY TO. LESTER PANDA [address] BRYSON GARCIA DATE COLLECTED DATE RECEIVED DATE REPORTED 02/12/2024 02/13/2024 02/20/2024 ThinPrep Pap with Cytyc Imaging DIAGNOSIS: Negative for intraepithelial lesion or malignancy Multiple factors can influence accuracy of Pap tests; therefore, screening at regular intervals is necessary for early cancer detection. COMMENT: Benign cellular changes associated with reactive/reparativ e changes are present. Professional interpretation rendered by Satish Downing M.D.,F.C.A.P. at [facility], [employer], [address] [place] [address]. SPECIMEN ADEQUACY: SATISFACTORY FOR EVALUATION Transformation zone [...] 51, 52, 56, 58, 59, 66, 68 SUPERVISOR BURLING AND JOINING: SHEELA CALVILLO (ASCP) REVIEWED, DIAGNOSED AND ELECTRONICALLY SIGNED BY: Satish Downing M.D.,F.C.A.P. CPT CODES: [id number], [id number], [id number] 02/20/2024 9:39 AM EDT [facility] ThinPrep Vial Cervix uteri structure / Unknown Collection / Unknown 02/12/2024 5:03 PM EDT 02/12/2024 5:03 PM EDT us Bryosn Garcia SIZE TESTER PATHOLOGY/CYTOLOGY ORDERABLES Final Result [facility]
[address] [place] [address], from Last 3 Months or Most Recently Relevant to Health Maintenance Insurance [facility] Care Teams Locksmith Helper Relationship Specialty Start Date End Date Kristy Cabezas APRN [address] [place] [address] PCP - General Family Medicine 12/10/22
[2025-06-29 11:43] LABS: Hematocrit 37.4 % (37.0-47.0); Hemoglobin 13.3 g/dL (12.2-16.2); Immature Granulocytes % 0.2 %; Mean Corpuscular HGB Conc 35.6 g/dL (31.8-35.4); Mean Corpuscular Hemoglobin 30.7 pg (27.0-31.2); Mean Corpuscular Volume 86.4 fl (81-99); Nucleated Red Blood Cells % 0 %; Platelet Count 303 K/mm3 (142-424); Red Blood Count 4.33 M/mm3 (4.20-5.40); Red Cell Distribution Width-SD 39.1 fL; White Blood Count 8.7 K/mm3 (4.8-10.8)
[2025-06-29 13:00] LABS: Hepatitis C Ab Qual. W/ RFX NEGATIVE (Negative)
[2025-06-29 15:36] LABS: RPR W/RFX Titers Nonreactive (Nonreactive)
[2025-06-30 07:10] LABS: Hepatitis B Surface Antigen Negative (Negative)
[2025-06-30 08:27] LABS: Rubella Antibodies, IgG 2.67 index (Immune >0.99)
== END 2025-06-29 23:59 | disposition home or self-care (01) ==
LOC: LAB 11:15
PROVIDERS: PCP Nurse Practitioner Family; Visit Provider Obstetrics & Gynecology
DX: Z34.90 Encounter for supervision of normal pregnancy, unspecified, unspecified trimester (principal); Z3A.00 Weeks of gestation of pregnancy not specified
CPT/HCPCS: 36415; 85025; 86592; 86762; 86803; 86850; 87086; 87340; 87389

== ENCOUNTER 2025-07-17 19:27 | Emergency (ER) | payer BC, SELFPAY ==
[2025-07-17 19:33] VITALS: BP 121/69; PULSE 76; RESP 18; TEMP 36.7; O2SAT 98; BMI 25.1
--- OUTSIDE RECORDS SUMMARY | 2025-07-17 19:43 | XMS_ITS | Clinical Summary ---
Author Organization [facility] Address [address] [phone] Care Team Providers Care Screen Printer Name Role Phone Kristy Cabezasen ALIZA Primary Care Provider Allergies Active Allergy [...] 02/12/2024 4:25 PM EDT Plan of Treatment Health Maintenance Due Date Last Done Comments [...] Reference Lab Report [facility] [address] [place] [address] or [phone] Marcos Hurd M.D., Catalyst Recovery Operator PATIENT NAME [facility]AT[facility] NO. 65KARLA NICHOLSON [id number] AGE SEX SSN CLIENT REF # [facility]) 27 1995 F [id number] [address] REQUESTING Eliel [place] [address] MARY ELLEN GARCIA DATE COLLECTED DATE RECEIVED DATE REPORTED 02/12/2024 02/13/2024 02/20/2024 ThinPrep Pap with Cytyc Imaging DIAGNOSIS: Negative for intraepithelial lesion or malignancy Multiple factors can influence accuracy of Pap tests; therefore, screening at regular intervals is necessary for early cancer detection. COMMENT: Benign cellular changes associated with reactive/reparativ e changes are present. Professional interpretation rendered by Satish Downing M.D.,F.C.A.P. at [facility], [facility], [address] [place] [address]. SPECIMEN ADEQUACY: SATISFACTORY FOR EVALUATION Transformation zone [...] 51, 52, 56, 58, 59, 66, 68 TERRAZZO FINISHER: SHEELA CALVILLO (ASCP) REVIEWED, DIAGNOSED AND ELECTRONICALLY SIGNED BY: Satish Downing M.D.,F.C.A.P. CPT CODES: [id number], [id number], [id number] 02/20/2024 9:39 AM EDT [facility] ThinPrep Vial Cervix uteri structure / Unknown Collection / Unknown 02/12/2024 5:03 PM EDT 02/12/2024 5:03 PM EDT Mary Ellen Garcia CIVIL ENGINEERING DESIGN DRAFTSPERSON PATHOLOGY/CYTOLOGY ORDERABLES Final Result [facility]
[address] [place] [address], from Last 3 Months or Most Recently Relevant to Health Maintenance Insurance [facility] CROSS BLUE SHIELD PPO Care Teams Screen Printer Relationship Specialty Start Date End Date Kristy Cabezas APRN [address] [place] [address] PCP - General Family Medicine 12/10/22
[2025-07-17 20:00] VITALS: BP 125/72; PULSE 68; O2SAT 95
--- NOTE | 2025-07-17 20:17 | ED_ITS ---
Discharge Plan Disposition Patient Disposition: Home, Self-Care Condition: Good Prescriptions Prescriptions: No Action buspirone 5 mg tablet 5 mg PO BID Patient Comments: TAKE 1 TABLET BY MOUTH TWICE DAILY propranolol 10 mg tablet 10 mg PO PRN Patient Comments: TAKE 1 TABLET BY MOUTH TWICE DAILY NEEDED. INCREASE ANXIETY OR STRESS fluoxetine 20 mg capsule 20 mg PO DAILY Patient Comments: TAKE 1 CAPSULE BY MOUTH DAILY WITH 40MG fluoxetine 40 mg capsule 40 mg PO DAILY Patient Comments: TAKE UP TO 1 CAPSULE BY MOUTH DAILY DIRECTED clonidine HCl 0.1 mg tablet 0.1 mg PO DAILY PRN (Reason: Depression) Patient Comments: TAKE 1 TABLET BY MOUTH AT BEDTIME FOR INCREASED ANXIETY Referrals Follow up/Referrals: Jackie Ly DO [Staff Physician, INTERNAL MEDICINE PHYSICIAN] - See instructions Provider,Referral, MD [Primary Care Provider, Medical] - See instructions Activity Restrictions/Add. Instructions Additional Instructions/Restrictions: Please follow-up with your INTERNAL MEDICINE PHYSICIAN first thing next week. Please return to the emergency department with any worsening signs or symptoms. Please continue to take all your at home medications as prescribed. Please return to the emergency department any worsening vaginal bleeding abdominal pain, any vaginal bleeding that soaks through more than 1 pad an hour. Clinical Impressions Clinical Impression: Vaginal bleeding affecting early Instructions Patient Instructions: DI for Vaginal Bleeding During Print Language Print Language: Albanian Discharge ED Provider: Dutch Mckeon General Adult HPI <DARIANA Lainez - Last Filed: 07/17/25 21:50> General Chief complaint: Vaginal Bleeding Stated complaint: dark discharge, 12 weeks preg Time Seen by Provider: 07/17/25 19:44 Mode of Arrival: Ambulatory Source of Information: Patient Description of Symptoms (Recalled from ER Triage Doc. by RN): patient presents for dark brown vaginal discharge that she noticed yesterday. patient is 12 weeks , first . she also mentions that she has very small clots that can also be stringy in nature. History of Present Illness HPI narrative: 30-year-old female who is approximately G1, , at approximately 11 to 12 weeks gestation, presents to the emergency department with some brown vaginal discharge that started yesterday, not enough to soak through a pad, describes it as stringy , in nature, denies any fever chills chest pain shortness of breath nausea vomiting constipation diarrhea, did have cough congestion several days ago has been treated with [id number] cold and flu medications, patient denies any urinary type symptomatology, overt abdominal pain, no constipation no diarrhea. Other past medical history consistent with OCD, ROSA, ADHD, MDD, initial triage vitals are unremarkable. Of note patient had laboratory studies performed on 06/29/2025 by her INTERNAL MEDICINE PHYSICIAN, normal hemoglobin hematocrit at that time, hCG quant on 06/09/2025 was 52,592, UA was negative on 06/29/2025, and blood type is B+ antibody screen negative, documented IUP on ultrasound performed on 06/29/2025. Please note that above description of symptoms, in this electronic medical record under categorization of recalled from ER triage doctor by RN are reflective of an initial nursing assessment, however, is not reflective of my full history and physical exam that was personally taken and clarified. Consequentially, this preceding description of symptoms, which may include the patient's categorized chief complaint in the EMR, do not reflect my personal clinical impression, and the ultimate description of history of present illness and patient stated complaints should be deferred to this section of the note. Unless stated otherwise or congruent with this section of the note, additional signs, symptoms, or incongruence should be interpreted as inaccurate with my clinical impression. Onset (ago): day(s) Related Data Home Medications ?Medication ?Instructions ?Recorded ?Confirmed fluoxetine 40 mg capsule 40 mg PO DAILY Depression 07/14/25 buspirone 5 mg tablet 5 mg PO BID 06/29/25 5 clonidine HCl 0.1 mg tablet 0.1 mg PO DAILY PRN Depres scott 06/29/25 07/14/25 fluoxetine 20 mg capsule 20 mg PO DAILY 06/29/2506/17 propranolol 10 mg tablet 10 mg PO PRN 06/29/25 Allergies Allergy/AdvReac Type Severity Reaction Status Date / Time Sulfa (Sulfonamide Allergy Hives Verified 07/14/25 16:05 Antibiotics) [facility] <DARIANA Lainez - Last Filed: 07/17/25 21:50> [facility] Disclaimer: The information contained in this section may have been updated after the patient was seen, as this information can be updated by other users. Medical History Anxiety disorder affecting , antepartum OCD (obsessive compulsive disorder) ADHD Encounter for related examination Depression Anxiety Surgical History [place] teeth extracted History of tonsillectomy and adenoidectomy Family History Grandmother Cancer colon Other Diabetes Social History Smoking Status: Never smoker alcohol intake: never substance use type: denies use current occupational status: other Travel in the last 8 weeks?: None housing: house Have you lived/traveled outside [place] in past 30 days?: No Contact w/someone who lives/traveled outside US past 30 days?: No Exposure to someone with infectious disease in past 14 days?: No Do you have a fever (greater than 100.4 F or 38 C)?: No Have you tested positive for COVID-19?: No Exposed to someone with COVID-19 in past 14 days?: No Do you have a sore throat?: No Do you have a cough?: No Do you have any weakness?: No Do you have any diarrhea?: No Are you experiencing any unusual bleeding?: No Do you have any muscle aches/pain?: No Do you have any abdominal pain?: No Are you experiencing loss of taste or smell?: No Other Medical History Have you received the Flu Vaccine for this season: No <DARIANA Lainez - Last Filed: 07/17/25 21:50> ROS Obtained: Yes All systems reviewed & no additional complaints except as documented Physical Exam <DARIANA Lainez - Last Filed: 07/17/25 21:50> General General appearance: alert and in no apparent distress Head Head exam: atraumatic and normocephalic Eye Eye exam: Present PERRL and EOMI ENT ENT exam: Present mucous membranes moist Neck Neck exam: Present normal inspection Chest Chest inspection: Present normal inspection and symmetric chest wall rise Respiratory Respiratory exam: Present normal lung sounds bilaterally; Absent respiratory distress Cardiovascular Cardiovascular exam: Present regular rate and normal rhythm Abdominal Exam Abdominal exam: Present soft; Absent tenderness or guarding Extremities Exam Extremities exam: Present normal inspection Neurological Exam Neurological exam: Present alert and oriented X3 Psychiatric Psychiatric exam: Present normal affect Skin Skin exam: Present warm and dry Medical Decision Making <DARIANA Lainez - Last Filed: 07/17/25 21:50> Medical Records Medical records reviewed: Yes I reviewed the patient's medical records. Screening: Per USPSTF and CDC recommendations, given the prevalence of disease in our region, it is our hospital?s policy to screen for HIV and viral Hepatitis for all patients aged 18 and over and those with ongoing risk factors. Lm Inquiry Pt receiving controlled substance: No Lm was queried for this patient: No Vital Signs: 07/17/25 19:33 07/17/25 20:00 Temperature 98.0 F Temperature Source Oral Pulse Rate 68 Pulse Rate [Right Radial] 76 Respiratory Rate 18 Blood Pressure 125/72 Blood Pressure [Right Arm] 121/69 Blood Pressure Mean [Right Arm] 86 Blood Pressure Source [Right Arm] Automatic Cuff Blood Pressure Position [Right Arm] Sitting 02 Sat by Pulse Oximetry 98 95 Oxygen Delivery Method Room Air Lab Data Lab results reviewed: Yes I reviewed the patient's lab results. Lab Results 07/17/25 20:07: Urine Color Yellow, Urine Appearance Clear, Urine pH 5.5, Ur Specific [place] 1.025, Urine Protein Negative, Urine Glucose (UA) Negative, Urine Ketones Negative, Urine Blood Negative, Urine Nitrate Negative, Urine Bilirubin Negative, Urine Urobilinogen 1.0, Ur Leukocyte Esterase Negative 07/17/25 20:14: WBC 9.9, RBC 4.14 L, Hgb 12.5, Hct 35.2 L, MCV 85.0, MCH 30.2, M CHC 35.5 H, RDW 12.1, Plt Count 279, MPV 10.5 H, Neut % (Auto) 59.5, Lymph % (Auto) 33.5, [place] % (Auto) 4.4, Eos % (Auto) 2.1, Baso % (Auto) 0.2, Neut # (Auto) 5.9, Lymph # (Auto) 3.3, [place] # (Auto) 0.4, Eos # (Auto) 0.2, Baso # (Auto) 0.0, Sodium 135 L, Potassium 3.0 L, Chloride 100, Carbon Dioxide 27, Anion Gap 11.0, BUN 4 L, Creatinine 0.50 L, Estimated Creat Clear 170, Estimated GFR 147, Est GFR ( Amer) 178, Glucose 80, Calcium 9.0, Total Bilirubin < 0.1 L, AST 29, ALT 18, Alkaline Phosphatase 77, Total Protein 7.7, Albumin 5.0, Globulin 2.7, Albumin/Globulin Ratio 1.9 H, HCG, Quant [id number] H 07/17/25 20:14 07/17/25 20:14 Orders (Tests/Meds): ED MEDICATIONS Discontinued Medications Generic Name Dose Route Start Last Admin Trade Name Freq PRN Reason Stop Dose Admin Potassium Chloride 60 meq 07/17/25 20:53 07/17/25 21:23 Potassium Chloride 20meq Tab PO 07/17/25 20:54 60 meq ONCE ONE Administration ORDERS Category Date Time Status POCUS Point of Care (ER Only) Stat Exams 07/17/25 19:47 Completed Complete Blood Count Auto Diff Stat Lab 07/17/25 20:14 Completed Comprehensive Metabolic Panel Stat Lab 07/17/25 20:14 Completed HCG,Quantitative Stat Lab 07/17/25 20:14 Completed Urinalysis and Microscopic Stat Lab 07/17/25 20:07 Results Vaginitis Plus/HSV Stat Lab 07/17/25 21:13 Received Medical Decision Narrative: 30-year-old female presents to the emergency department with some vaginal discharge/vaginal bleeding this occurred yesterday, at approximately 12 weeks gestation G1, , differential diagnose include but not limited to, molar , spontaneous , acute UTI, subchorionic hematoma, implantation of bleeding among others. I discussed this patient's case with the attending physician Dr. Mckeon he saw and examined the patient as well. Will obtain basic laboratory studies, hCG quant, urinalysis, vaginitis swab, POCUS ultrasound for further evaluation/characterization. As well have nursing staff to attempt to elicit heart tones. heart tones elicited by myself and nursing staff, 157 and 160. CBC is unremarkable hemoglobin hematocrit are within normal limits UA is unremarkable Dutch Mckeon: Procedure performed was obstetric ultrasound. Procedure performed by Dutch Mckeon. Using the curvilinear probe suprapubic views were obtained. Positive intrauterine with heart fluttering. Images were saved to a permanent archive and were technically adequate. Patient tolerated the procedure well there were no immediate complications. It did not necessitate further imaging. CMP is notable for mild hypokalemia at 3.0 otherwise unremarkable CMP, will replace with 60 mill equivalents p.o. potassium. hCG quant is 27,664 I discussed this patient's case with the on-call INTERNAL MEDICINE PHYSICIAN at approximate 9:40 PM, she is in agreement with the current discharge plan/treatment plan for threatened , patient will follow-up in INTERNAL MEDICINE PHYSICIAN clinic first of next week, she was given bleeding precautions and strict return precautions. I discussed the results with the patient at the bedside patient is in agreement with current discharge plan/treatment plan, strict ED return precaution bleeding precaution were given to the patient. Patient voiced understanding and agreed with current treatment plan/discharge plan. <Dutch Mckeon MD - Last Filed: 07/17/25 21:50> Vital Signs: 07/17/25 19:33 07/17/25 20:00 Temperature 98.0 F Temperature Source Oral Pulse Rate 68 Pulse Rate [Right Radial] 76 Respiratory Rate 18 Blood Pressure 125/72 Blood Pressure [Right Arm] 121/69 Blood Pressure Mean [Right Arm] 86 Blood Pressure Source [Right Arm] Automatic Cuff Blood Pressure Position [Right Arm] Sitting 02 Sat by Pulse Oximetry 98 95 Oxygen Delivery Method Room Air Lab Data Lab Results 07/17/25 20:07: Urine Color Yellow, Urine Appearance Clear, Urine pH 5.5, Ur Specific [place] 1.025, Urine Protein Negative, Urine Glucose (UA) Negative, Urine Ketones Negative, Urine Blood Negative, Urine Nitrate Negative, Urine Bilirubin Negative, Urine Urobilinogen 1.0, Ur Leukocyte Esterase Negative 07/17/25 20:14: WBC 9.9, RBC 4.14 L, Hgb 12.5, Hct 35.2 L, MCV 85.0, MCH 30.2, M CHC 35.5 H, RDW 12.1, Plt Count 279, MPV 10.5 H, Neut % (Auto) 59.5, Lymph % (Auto) 33.5, [place] % (Auto) 4.4, Eos % (Auto) 2.1, Baso % (Auto) 0.2, Neut # (Auto) 5.9, Lymph # (Auto) 3.3, [place] # (Auto) 0.4, Eos # (Auto) 0.2, Baso # (Auto) 0.0, Sodium 135 L, Potassium 3.0 L, Chloride 100, Carbon Dioxide 27, Anion Gap 11.0, BUN 4 L, Creatinine 0.50 L, Estimated Creat Clear 170, Estimated GFR 147, Est GFR ( Amer) 178, Glucose 80, Calcium 9.0, Total Bilirubin < 0.1 L, AST 29, ALT 18, Alkaline Phosphatase 77, Total Protein 7.7, Albumin 5.0, Globulin 2.7, Albumin/Globulin Ratio 1.9 H, HCG, Quant [id number] H Orders (Tests/Meds): ED MEDICATIONS Discontinued Medications Generic Name Dose Route Start Last Admin Trade Name Freq PRN Reason Stop Dose Admin Potassium Chloride 60 meq 07/17/25 20:53 07/17/25 21:23 Potassium Chloride 20meq Tab PO 07/17/25 20:54 60 meq ONCE ONE Administration ORDERS Category Date Time Status POCUS Point of Care (ER Only) Stat Exams 07/17/25 19:47 Completed Complete Blood Count Auto Diff Stat Lab 07/17/25 20:14 Completed Comprehensive Metabolic Panel Stat Lab 07/17/25 20:14 Completed HCG,Quantitative Stat Lab 07/17/25 20:14 Completed Urinalysis and Microscopic Stat Lab 07/17/25 20:07 Results Vaginitis Plus/HSV Stat Lab 07/17/25 21:13 Received Medical Decision Narrative: 30-year-old female presents to the emergency department with some vaginal discharge/vaginal bleeding this occurred yesterday, at approximately 12 weeks gestation G1, , differential diagnose include but not limited to, molar , spontaneous , acute UTI, subchorionic hematoma, implantation of bleeding among others. I discussed this patient's case with the attending physician Dr. Mckeon he saw and examined the patient as well. Will obtain basic laboratory studies, hCG quant, urinalysis, vaginitis swab, POCUS ultrasound for further evaluation/characterization. As well have nursing staff to attempt to elicit heart tones. heart tones elicited by myself and nursing staff, 157 and 160. CBC is unremarkable hemoglobin hematocrit are within normal limits UA is unremarkable Dutch Mckeon: Procedure performed was obstetric ultrasound. Procedure performed by Dutch Mckeon. Using the curvilinear probe suprapubic views were obtained. Positive intrauterine with heart fluttering. Images were saved to a permanent archive and were technically adequate. Patient tolerated the procedure well there were no immediate complications. It did not necessitate further imaging. CMP is notable for mild hypokalemia at 3.0 otherwise unremarkable CMP, will replace with 60 mill equivalents p.o. potassium. hCG quant is 27,664 I discussed this patient's case with the on-call INTERNAL MEDICINE PHYSICIAN at approximate 9:40 PM, she is in agreement with the current discharge plan/treatment plan for threatened , patient will follow-up in INTERNAL MEDICINE PHYSICIAN clinic first of next week, she was given bleeding precautions and strict return precautions. I discussed the results with the patient at the bedside patient is in agreement with current discharge plan/treatment plan, strict ED return precaution bleeding precaution were given to the patient. Patient voiced understanding and agreed with current treatment plan/discharge plan. Dutch Mckeon MD: I was consulted by the RASHAD, and we discussed the complexity of the problems being addressed. I approved the treatment and management plan for this patient's care in the emergency department, thus performing a substantive portion of the medical decision making. Critical Care <DARIANA Lainez - Last Filed: 07/17/25 21:50> Critical Care Time Critical Care Time: No
[2025-07-17 20:27] LABS: Microscopic, Urine URINE MICROSCOPIC (MICROSCOPIC)
[2025-07-17 20:29] LABS: Hematocrit 35.2 % (37.0-47.0); Hemoglobin 12.5 g/dL (12.2-16.2); Immature Granulocytes % 0.3 %; Mean Corpuscular HGB Conc 35.5 g/dL (31.8-35.4); Mean Corpuscular Hemoglobin 30.2 pg (27.0-31.2); Mean Corpuscular Volume 85.0 fl (81-99); Nucleated Red Blood Cells % 0 %; Platelet Count 279 K/mm3 (142-424); Red Blood Count 4.14 M/mm3 (4.20-5.40); Red Cell Distribution Width-SD 37.2 fL; White Blood Count 9.9 K/mm3 (4.8-10.8)
[2025-07-17 20:30] LABS: Bilirubin,Urine Negative (Negative); Color,Urine YELLOW (Yellow); Glucose,Urine (UA) Negative (Negative); Ketones,Urine Negative (Negative); Leukocyte Esterase,Urine Negative (Negative); PH,Urine 5.5 (5.0-8.5); Protein,Urine Negative (Negative); Specific Gravity, Urine 1.025 (1.005-1.030); Urobilinogen,Urine 1.0 EU/dl (0.2)
[2025-07-17 20:42] LABS: Albumin Level 5.0 g/dl (3.5-5.0); Chloride 100 mmol/L (98-107)
[2025-07-17 20:43] LABS: Sodium 135 mmol/L (136-145)
[2025-07-17 20:45] LABS: Alanine Aminotransferase 18 U/L (12-78); Albumin/Globulin Ratio 1.9 (1.1-1.8); Alkaline Phosphatase 77 U/L (38-126); Anion Gap 11.0 mEq/L (5-15); Aspartate Amino Transferase 29 U/L (14-36); Blood Urea Nitrogen 4 mg/dl (7-17); Carbon Dioxide 27 mmol/L (22.0-30.0); Creatinine Clearance Estimated 170 mL/min (50-200); Creatinine,Serum 0.50 mg/dl (0.52-1.04); Estimated Glomerular Filt Rate 147 ml/min (>60); GFR (African American) 178 ML/MIN (>60); Globulin 2.7 g/dL (1.3-3.2); Total Protein,Serum 7.7 g/dl (6.3-8.2)
[2025-07-17 20:46] LABS: Calcium 9.0 mg/dl (8.4-10.2); Glucose 80 mg/dl (74-100)
[2025-07-17 20:47] LABS: Bilirubin,Total < 0.1 mg/dl (0.2-1.3)
[2025-07-17 20:49] LABS: Potassium 3.0 mmoL/L (3.5-5.1)
--- NOTE | 2025-07-17 20:49 | PC.NURSE ---
Lab called with a K+ of 3.0, ER provider notified.
[2025-07-17] MEDS: POTASSIUM CHLORIDE 20MEQ TAB 60 MEQ PO (21:23)
[2025-07-17 21:50] VITALS: BP 126/65; PULSE 67; RESP 16; TEMP 37; O2SAT 100
[2025-07-17 22:45] LABS: Bacteria,Urine 2+ /lpf; RBC,Urine Occasional #/hpf (0-3)
[2025-07-17 22:46] LABS: Mucus,Urine 1+ /lpf
== END 2025-07-17 22:04 | disposition home or self-care (01) ==
PROVIDERS: Physician Assistant; Emergency Provider Emergency Medicine
DX: O20.9 Hemorrhage in early pregnancy, unspecified (principal); E87.6 Hypokalemia; Z3A.12 12 weeks gestation of pregnancy
CPT/HCPCS: 80053; 81001; 84702; 85025; 87086; 87491; 87529; 87591; 87661; 87798; 87801; 99283; 99284